=== PATIENT | male | born 1975 | race Caucasian/White ===

== ENCOUNTER 2017-03-29 18:51 | Emergency (ER) | payer SELFPAY ==
[~2017-03-29] VITALS: Ht 180.3 cm; Wt 100.6 kg
[~2017-03-29 18:51] MED LIST: HYDR-3516 PO; PERC5TAB12 PO; VIAG100T PO
[2017-03-29 19:02] VITALS: BP_SYST 173; PULSE 84; RESP 20; TEMP 98.1; O2SAT 100
[2017-03-29 19:31] VITALS: BP 173/81
--- NOTE | 2017-03-29 19:34 | PD ---
HPI Chief Complaint: Musculoskeletal Complaint Time Seen by Provider: 19:44 Travel History International Travel<30 days: No Contact w/Intl Traveler<30days: No Traveled to known affect area: No History of Present Illness HPI 42-year-old male presents to emergency department with right lower rib pain after falling on a rail while skateboarding tonight. States his pain is moderate to severe and is having difficulty with deep breaths secondary to the pain. Patient states that the pain occasionally radiates up to her shoulder but is mainly focused in the right lower axillary rib region. Patient denies abdominal pain, hematuria, back pain. Denies loss of bowel or bladder function , saddle anesthesia, fever, chills, history of IV drug use. Patient otherwise feels well. Denies chronic medication use or medical conditions. PFSH Past Medical History Cancer: No Cardiovascular Problems: No Genitourinary: No Hepatitis: No Hiatal Hernia: No Immune Disorder: No Musculoskeletal: No Neurologic: No Psychiatric: No Reproductive: No Respiratory: No Past Surgical History AICD: No Body Medical Devices: NONE Joint Replacement: No Pacemaker: No Other Surgery: Yes Social History Alcohol Use: Yes (DAILY) Tobacco Use: No Substance Use: No Allergies-Medications (Allergen,Severity, Reaction): Coded Allergies: No Known Allergies (Verified Adverse Reaction, Unknown, 03/29/17) Reported Meds & Prescriptions Reported Meds & Active Scripts Active Hydrocodone-Acetaminophen 5-325 mg Tab 1 Tab PO Q6H PRN 3 Days Reported Hydrocodone-Acetaminophen 5-325 mg Tab 1 Tab PO Q6H PRN Review of Systems Except as stated in HPI: all other systems reviewed are Neg Physical Exam Narrative GENERAL: Well-developed well-nourished in moderate distress SKIN: Focused skin assessment warm/dry. HEAD: Atraumatic. Normocephalic. EYES: Pupils equal and round. No scleral icterus. No injection or drainage. NECK: Supple, nontender. No meningeal signs. Trachea midline. No JVD or lymphadenopathy. NECK: Trachea midline. No JVD. CARDIOVASCULAR: Regular rate and rhythm. No murmur appreciated. RESPIRATORY: No accessory muscle use. Clear to auscultation. Breath sounds equal bilaterally. GASTROINTESTINAL: Abdomen soft, non-tender, nondistended. Hepatic and splenic margins not palpable. MUSCULOSKELETAL: No obvious deformities. No clubbing. No cyanosis. No edema. Significant TTP to right lower ribs. No deformities or crepitus. No significant edema or ecchymosis. BACK: No CVA tenderness. No rash. No point tenderness on palpation of the spine. NEUROLOGICAL: Awake and alert. No obvious cranial nerve deficits. Motor grossly within normal limits. Normal speech. PSYCHIATRIC: Appropriate mood and affect; insight and judgment normal. Data Data Last Documented VS Vital Signs Date Time Temp Pulse Resp B/P (MAP) Pulse Ox O2 Delivery O2 Flow Rate FiO2 03/29/17 21:04 03/29/17 19:02 98.1 84 20 100 Room Air Orders Orders Chest, Pa & Lat (03/29/17 ) Resp Incentive Spirometry (03/29/17 ) Ed Discharge Order (03/29/17 20:47) MDM Medical Decision Making Medical Screen Exam Complete: Yes Emergency Medical Condition: Yes Differential Diagnosis Right lower rib fracture, contusion, abrasion Narrative Course 42-year-old male presents to emergency department with right lower rib pain after falling on a rail while skateboarding tonight. States his pain is moderate to severe and is having difficulty with deep breaths secondary to the pain. Patient states that the pain occasionally radiates up to her shoulder but is mainly focused in the right lower axillary rib region. Patient denies abdominal pain, hematuria, back pain. Denies loss of bowel or bladder function , saddle anesthesia, fever, chills, history of IV drug use. Patient otherwise feels well. Denies chronic medication use or medical conditions. Vital signs stable. Chest x-ray obtained. Patient refuses CT abdomen and pelvis. Advised of risks versus benefit. Low suspicion of further damage however, this would rule out that possibility. Last Impressions Chest X-Ray 03/29/17 0000 Signed Impressions: Service Date/Time: Wednesday, March 29, 2017 19:39 - CONCLUSION: 1. Lateral ninth and 10th rib fractures on the right. 2. No acute cardiopulmonary disease identified. Reza Lucas MD Patient advised to monitor for signs of worsening pain. Patient given hydrocodone for the pain. Incentive spirometry. I advised to continue coughing and taking deep breaths. Patient understood and will comply. Discussed the normal course of his rib fractures and advised that that it may take weeks for healing. Follow-up with primary care physician within 2-3 days. Return to the emergency department for worsening or persistent symptoms. Diagnosis Primary Impression: Rib fracture Qualified Codes: S22.41XA - Multiple fractures of ribs, right side, initial encounter for closed fracture Referrals: [facility] Additional Instructions: Use ice or heat for symptom relief. If symptoms persist or worsen, return to the emergency department. Follow up with your primary care physician within 2 days. Use the incentive spirometer as prescribed. Follow-up with your primary care physician within 2-3 days. Scripts Hydrocodone-Acetaminophen (Hydrocodone-Acetaminophen) 5-325 mg Tab 1 TAB PO Q6H Y for PAIN for 3 Days, #12 TAB 0 Refills Prov: Brendan Levy MD 03/29/17 Disposition: 01 DISCHARGE HOME Condition: Stable Juliet Melendez Mar 29, 2017 19:34
--- NOTE | 2017-03-29 20:28 | RADRPT ---
EXAM DATE/TIME: 03/29/2017 19:39 [facility] COMPARISON: No previous studies available for comparison. INDICATIONS : Trauma, fall onto railing while skateboarding. MEDICAL HISTORY : None. SURGICAL HISTORY : None. ENCOUNTER: Initial ACUITY: 1 day PAIN SCORE: 9/10 LOCATION: Right posterior ribs FINDINGS: PA and lateral views of the chest. The lungs are clear. Cardiomediastinal silhouette within normal li mits. No evidence of pleural effusion or pneumothorax. Lateral ninth and 10th rib fractures on the ri ght. CONCLUSION: 1. Lateral ninth and 10th rib fractures on the right. 2. No acute cardiopulmonary disease identified. Reza Lucas MD on March 29, 2017 at 20:25 Board Certified Radiologist. This report was verified electronically.
[2017-03-29] MEDS ORDERED: HYDR-3516 PO (20:45)
== END 2017-03-29 21:04 | disposition home or self-care (01) ==
LOC: PHEFT 18:51
DX: S22.41XA Multiple fractures of ribs, right side, initial encounter for closed fracture (principal); V00.131A Fall from skateboard, initial encounter; Y93.51 Activity, roller skating (inline) and skateboarding
CPT/HCPCS: 71020; 94150; 99283